=== PATIENT | male | born 1960 | race Caucasian/White ===

== ENCOUNTER 2023-12-11 15:06 | Emergency (ER) | payer BC, SELFPAY ==
[2023-12-11 15:19] VITALS: BP 144/93
--- NOTE | 2023-12-11 16:04 | ED.GENMED ---
History of Present Illness
General
Chief Complaint: Skin Surface Trauma
Source: patient
Exam Limitations: none
Time Seen by Provider: 12/11/23 15:40
Nursing documentation reviewed up to this point in time: agreed with
History of Present Illness
History of Present Illness:
pt is a 63 y/o M with no reported PMH
pt says that he has never been seen in the hospital or by a doctor
no meds
no vaccinations
had a tree branch cause laceration to L forearm and some superficial abrasions
full rom of the elbow an dwrist/hand distally
no numbness/itngling/weakness
bleeding controlled
Review of Systems
Review of Systems
Allergies reviewed?: Yes
All Other Systems: Not applicable
Phy Exam
Physical Exam
Physical Exam:
GENERAL: Alert , in no apparent distress, comfortable at rest
HEAD: NCAT
CV: 2+ radial pulse
cap refill intact fingers
NEUROLOGICAL: Alert and oriented, no focal neuro deficits, , 5/5 strength, sensation intact, ambulation slight limp right leg
SKIN: Warm and dry, laceration to left prox forearm approx 7 cm, subcutaneous bleeding controlled
multiple abrasions/bruising to arm
MUSCULOSKELETAL: laceration L arm as above
PSYCH: Normal and appropriate interaction.
Course
Vital Signs
Initial and Last Documented VS:
Initial Vital Signs
Temp Pulse Resp BP Pulse Ox
98.1 F 77 16 144/93 98
12/11/23 15:19 12/11/23 15:19 12/11/23 15:19 12/11/23 15:19 12/11/23 15:19
Last Documented Vital Signs
Temp Pulse Resp BP Pulse Ox
98.1 F 77 16 144/93 98
12/11/23 15:19 12/11/23 15:19 12/11/23 15:19 12/11/23 15:19 12/11/23 15:19
Procedures
Laceration Closure
Left Lateral Arm:
Status of Wound: clean
Description of Wound Edges: ragged and flap-well vascularized
Preparation: cleaned with saline
Anesthesia: 1% Lidocaine with epi
Revision/Debridement: minor revision and irrigate-direct pressure
Wound exploration: explored to base- no FB
Type of Closure: layered closure
Skin Closure Material: 4-0 nylon and 5-0 nylon
Number of sutures: 12
MDM/Problems Addressed
Differential Diagnosis Includes:
laceration, asymptomatic htn
MDM/Problems Addressed:
63 yo M
no med prob but he has not seen pcp in years
here with laceraiton L forearm from a tree branch
has never been vaccinated for tetanus and declines
knows risks
laceration required 2 layer closure
well paproximated
suture removal 10 days
bp slightly elevated
no sypmtoms
needs f/u with PCP
pt aware but does not sound like he will pursue.
*Critical Care Note
Total Time (30-74mins, 75-104mins- exclusive of procedures): Not Applicable
ED Attending Note
-
Portions of this chart may have been created with voice recognition software.� Occasional wrong word or��sound alike� substitutions may have occurred due to the inherent limitations of voice recognition software.
Discharge Plan
Departure
Patient Disposition: Home (Routine Discharge)
Date of Disposition: 12/11/23
Time of Disposition: 17:05
Patient with high blood pressure during this ER visit?: Yes
Condition: Fair
Covid-19: Not Applicable
Discharge Problem:
Arm laceration
Instructions: Laceration Repair With Stitches (DC), BLOOD PRESSURE
Activity Restrictions/Additional Instructions:
KEEP THE WOUND CLEAN AND DRY FOR 24 HOURS
AFTER THAT YOU CAN GET IT WET IN THE BATH/SHOWER ONCE A DAY AND MAKE SURE IT IS CLEAN AND THERE IS NO DRIED BLOOD ON THE STITCHES
APPLY NEOSPORIN AND A DRESSING
THE STITCHES NEED TO BE REMOVED IN ABOUT 7-10 DAYS, SEE YOUR DOCTOR FOR THIS.
THE LAST DAY BEFORE STITCHES OUT, NO OINTMENT, LEAVE OPEN TO AIR
WATCH FOR SIGNS OF INFECTION AND RETURN NEEDED FOR PAIN, SWELLING, REDNESS, DRAINAGE, BLEEDING.
MOTRIN NEEDED FOR PAIN.
Interventions
Interventions:
*Risk Screen - Suicide Last Done: 12/11/23 15:08
*General Assessment Last Done: 12/11/23 16:07
*Neglect/Abuse Screening Last Done: 12/11/23 16:08
ED- Fall Risk Assessment Last Done: 12/11/23 17:10
*ED COVID-19 Vaccine History Last Done: 12/11/23 16:07
*Nursing Disposition Last Done: 12/11/23 17:10
ED-Skin Assessment Last Done: 12/11/23 16:04
Discharge Date and Time
Discharge Date/Time: 12/11/23 17:15
Print Language: [place]
[2023-12-11 16:11] VITALS: BMI 29.8
== END 2023-12-11 17:15 | disposition home or self-care (01) ==
LOC: EMR 15:06
PROVIDERS: EMERGENCY PHYSICIAN Emergency Medicine
DX: S51.812A Laceration without foreign body of left forearm, initial encounter (principal); W22.8XXA Striking against or struck by other objects, initial encounter
CPT/HCPCS: 12032; 99282